=== PATIENT | female | born 1980 | race African-American/Black ===

== ENCOUNTER 2020-11-09 17:37 | Emergency (ER) | payer OTHER ==
[~2020-11-09] VITALS: Ht 165.1 cm; Wt 73.0 kg
[2020-11-09] MEDS ORDERED: HYDROCODONE/ACETAMINOPHEN 10/325MG TABLET PO ONE (20:30)
[2020-11-09 22:05] VITALS: BP 162/98
== END 2020-11-09 22:09 | disposition home or self-care (01) ==
LOC: ER 17:37
DX: S82.141A Displaced bicondylar fracture of right tibia, initial encounter for closed fracture (principal); W01.0XXA Fall on same level from slipping, tripping and stumbling without subsequent striking against object, initial encounter; Y93.89 Activity, other specified; Y92.488 Other paved roadways as the place of occurrence of the external cause
CPT/HCPCS: 73560; 99283; L1830